=== PATIENT | male | born 1975 | race Caucasian/White ===

== ENCOUNTER 2024-11-07 14:17 | Emergency (ER) | payer OTHER ==
[~2024-11-07] VITALS: Ht 175.2 cm; Wt 102.1 kg
[2024-11-07] MEDS ORDERED: Ondansetron Hydrochloride 4 MG/2 ML VIAL IV ONE (15:05)
[2024-11-07] MEDS ORDERED: SODIUM CHLORIDE 0.9% 1,000 ML IV ONE (15:05)
[2024-11-07] MEDS ORDERED: PERCOCET 5-3251 EACH PO (16:33)
== END 2024-11-07 16:52 | disposition home or self-care (01) ==
LOC: ED 14:17
DX: S43.101A Unspecified dislocation of right acromioclavicular joint, initial encounter (principal); S40.011A Contusion of right shoulder, initial encounter; V86.56XA Driver of dirt bike or motor/cross bike injured in nontraffic accident, initial encounter; Y93.89 Activity, other specified; Y92.89 Other specified places as the place of occurrence of the external cause; Y99.8 Other external cause status